=== PATIENT | female | born 1970 | race Hispanic/Latino ===

== ENCOUNTER 2019-11-11 07:08 | Emergency (ER) | payer BC ==
[~2019-11-11] VITALS: Ht 167.6 cm; Wt 85.7 kg
[2019-11-11 08:03] LABS: BASOPHILS % (AUTO) 1.1 % (0.0-5.0); EOSINOPHILS % (AUTO) 1.3 % (0.0-8.0); HEMATOCRIT 30.8 % (36-48); MEAN CORPUSCULAR HEMOGLOBIN 29.6 pg (27.0-33.0); MEAN CORPUSCULAR HGB CONC 32.8 g/dL (32.0-36.0); MEAN CORPUSCULAR VOLUME 90.3 fL (79-99); MONOCYTES % (AUTO) 6.9 % (3.0-13.0); NEUTROPHILS % (AUTO) 69.3 % (40.0-77.0); PLATELET COUNT (AUTO) 255 K/uL (130-400); RED BLOOD CELL COUNT(AUTO) 3.41 MIL/uL (4.00-5.50); RED CELL DISTRIBUTION WIDTH 13.2 % (11.0-15.5); WHITE BLOOD COUNT (AUTO) 4.6 K/uL (4.8-10.8)
[2019-11-11] MEDS ORDERED: SODIUM CHLORIDE 0.9% 1000ML 1,000 ML IV ONE (08:10)
[2019-11-11 08:16] LABS: CREATININE 0.8 mg/dL (0.5-1.5); POTASSIUM 4.5 mmol/L (3.5-5.1)
[2019-11-11 08:19] LABS: INR 0.98 (0.85-1.15); PARTIAL THROMBOPLASTIN TIME 25.9 SEC (26.3-35.5); PROTHROMBIN TIME 10.3 SEC (9.6-11.6)
[2019-11-11 08:22] LABS: ALBUMIN 3.2 g/dL (3.5-5.0); BILIRUBIN,TOTAL 0.2 mg/dL (0.2-1.0)
[2019-11-11] MEDS ORDERED: IOHEXOL-350 75 ML VIAL IV ONE (09:12)
[2019-11-11] MEDS ORDERED: LEVOFLOXACIN 750 MG/D5W 150 ML 150 ML ONE (10:21)
[2019-11-11] MEDS ORDERED: MORPHINE SULFATE 2 MG/ML 1ML SYG ONE (10:21)
[2019-11-11] MEDS ORDERED: ONDANSETRON HCL 4 MG/2 ML VIAL ONE (10:21)
[2019-11-11] MEDS ORDERED: METRONIDAZOLE 500MG/100ML BAG 100 ML ONE (10:21)
[2019-11-11] MEDS ORDERED: ACETAMINOPHEN EXTRA STRENGTH 500 MG TABLET ONE (20:38)
[2019-11-12] MEDS ORDERED: SODIUM CHLORIDE 0.9% 1000ML 1,000 ML IV ONE (03:44)
[2019-11-12] MEDS ORDERED: METRONIDAZOLE 500MG/100ML BAG 100 ML ONE (07:25)
[2019-11-12] MEDS ORDERED: METRONIDAZOLE 500MG/100ML BAG 100 ML IVPB SCH (08:00)
[2019-11-12] MEDS ORDERED: LEVOFLOXACIN 750 MG/D5W 150 ML 150 ML IV SCH (21:00)
== END 2019-11-12 07:36 | disposition left against medical advice (07) ==
LOC: EDH 07:08
DX: K57.92 Diverticulitis of intestine, part unspecified, without perforation or abscess without bleeding (principal); K92.1 Melena; R55 Syncope and collapse; R10.30 Lower abdominal pain, unspecified; Z90.710 Acquired absence of both cervix and uterus
CPT/HCPCS: 36415; 74177; 80053; 82270; 82550; 84484; 85025; 85610; 85730; 86850; 86900; 86901; 87040 ×2; 93005; 96361; 96365; 96366; 96367; 96375; 99285; J1956; J2405; J3490 ×2; J7030 ×2; Q9967